=== PATIENT | female | born 1965 | race Caucasian/White ===

== ENCOUNTER 2016-11-29 09:59 | Emergency (ER) | payer OTHER, MEDICAID ==
[2016-11-29] MEDS ORDERED: Labetalol 100 MG/20 ML MDV IVPUSH ONE (11:00)
[2016-11-29] MEDS ORDERED: Sodium Chloride 0.9% 10 ML Syringe FLUSH PRN (11:00)
--- NOTE | 2016-11-29 11:17 | EDM.PDOC ---
ED HPI GENERAL MEDICAL PROBLEM - General Chief Complaint: ENT Problem Stated Complaint: NOSE BLEED, EARS RINGING, Time Seen by Provider: 11/29/16 10:22 Source of Information: Reports: Patient, RN Notes Reviewed - History of Present Illness INITIAL COMMENTS - FREE TEXT/NARRATIVE: 51-year-old lady comes in with multiple symptoms. SHe has not been feeling well for the past week or 10 days with upper respiratory symptoms of nasal congestion cough, low energy. She is under a lot of stress in terms of work and also a bad social situation involving custody of a granddaughter. She had been on medication for hypertension but stopped taking her medication about a year ago. She really does not know what her blood pressure has been running. She did have a nosebleed about a month ago that did stop on its own. she had recurrent severe nosebleed left nares this morning at work a couple of hours ago. she wanted to just go home and rest but her boss, family and friend all insisted she come to the ED. Nosebleed did stop at some point prior to arrival. 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: Other (see below) Other Treatments HOSIERY LOOPER: murtaza asa x 2 tabs - Related Data Allergies Allergy/AdvReac Type Severity Reaction Status Date / Time Penicillins Allergy Swelling Verified 11/29/16 10:18 Home Meds: Home Meds Lisinopril 10 mg PO DAILY #30 tablet 11/29/16 [Rx] Past Medical History Cardiovascular History: Reports: Hypertension Respiratory History: Reports: Asthma Genitourinary History: Reports: Other (See Below) Other Genitourinary History: bladder repair - Past Surgical History GI Surgical History: Reports: Appendectomy, Other (See Below) Other GI Surgeries/Procedures: colon repair Female Surgical History: Reports: Hysterectomy Social & Family History - Tobacco Use Smoking Status *Q: Current Every Day Smoker Years of Tobacco use: 40 Packs/Tins Daily: 1.5 - Caffeine Use Caffeine Use: Reports: Coffee - Recreational Drug Use Recreational Drug Use: Yes Recreational Drug Type: Reports: Marijuana/Hashish Recreational Drug Use Frequency: Weekly ED ROS ENT - Review of Systems Review Of Systems: See Below Constitutional: Denies: Fever, Chills HEENT: Reports: Rhinitis, Sinus Problem, Other (Nosebleed left nares). Denies: Throat Pain Respiratory: Denies: Shortness of Breath Cardiovascular: Denies: Chest Pain Endocrine: Reports: Fatigue GI/Abdominal: Denies: Abdominal Pain, Nausea, Vomiting Musculoskeletal: Reports: Other (Generalized achiness) Skin: Reports: No Symptoms Neurological: Reports: No Symptoms, Headache (Mild frontal). Denies: Trouble Speaking Psychiatric: Reports: Anxiety, Other (Severe stress) ED EXAM, ENT - Physical Exam Exam: See Below General Appearance: Alert, Anxious, Mild Distress Eye Exam: Bilateral Eye: PERRL Nose: Other (Area of prior bleeding visible left septum). No: Active Bleeding Mouth/Throat: Normal Inspection Head: Atraumatic Neck: Supple, Full Range of Motion Respiratory/Chest: No Respiratory Distress, Lungs Clear, Normal Breath Sounds Cardiovascular: Tachycardia GI/Abdominal: Soft, Non-Tender Extremities: Normal Inspection, Normal Range of Motion. No: Pedal Edema, Leg Pain Neurological: Alert, Oriented, No Motor/Sensory Deficits Skin: Warm, Dry, Normal Color Course - Vital Signs Last Recorded V/S: Last Vital Signs Temp 98.0 F 11/29/16 10:14 Pulse 94 11/29/16 12:33 Resp 20 11/29/16 10:14 BP 124/76 11/29/16 12:33 Pulse Ox 96 11/29/16 12:32 - Orders/Labs/Meds Orders: Active Orders 24 hr Category Date Time Status Peripheral IV Care [RC] . DIRECTED Care 11/29/16 11:00 Active Sodium Chloride 0.9% [Saline Flush] Med 11/29/16 11:00 Active 10 ml FLUSH ASDIRECTED PRN Peripheral IV Insertion Adult [OM.PC] Stat Oth 11/29/16 11:00 Ordered Medication Orders Sodium Chloride (Saline Flush) 10 ml FLUSH ASDIRECTED PRN PRN Reason: Keep Vein Open Last Admin: 11/29/16 11:36 Dose: 10 ml Labs: Laboratory Tests 11/29/16 11/29/16 Range/Units 11:15 11:15 WBC 16.15 H (3.98-10.04) K/mm3 RBC 5.19 (3.98-5.22) M/mm3 Hgb 15.1 (11.2-15.7) gm/L Hct 45.1 H (34.1-44.9) % MCV 86.9 (79.4-94.8) fl MCH 29.1 (25.6-32.2) pg MCHC 33.5 (32.2-35.5) g/dl RDW Std Deviation 43.9 (36.4-46.3) fL Plt Count 333 (182-369) K/mm3 MPV 9.8 (9.4-12.3) fl Neut % (Auto) 74.9 H (34.0-71.1) % Lymph % (Auto) 18.7 L (19.3-51.7) % [place] % (Auto) 4.6 L (4.7-12.5) % Eos % (Auto) 1.4 (0.7-5.8) Baso % (Auto) 0.2 (0.1-1.2) % Neut # (Auto) 12.10 H (1.56-6.13) K/mm3 Lymph # (Auto) 3.02 (1.18-3.74) K/mm3 [place] # (Auto) 0.74 H (0.24-0.36) K/mm3 Eos # (Auto) 0.22 (0.04-0.36) K/mm3 Baso # (Auto) 0.03 (0.01-0.08) K/mm3 Sodium 137 (136-145) mEq/L Potassium 4.0 (3.5-5.1) mEq/L Chloride 102 (98-107) mEq/L Carbon Dioxide 24 (21-32) mEq/L Anion Gap 15.0 (5-15) BUN 13 (7-18) mg/dL Creatinine 0.8 (0.55-1.02) mg/dL Est Cr Clr Drug Dosing 79.99 mL/min Estimated GFR (MDRD) > 60 (>60) mL/min BUN/Creatinine Ratio 16.3 (14-18) Glucose 122 H (74-106) mg/dL Calcium 9.3 (8.5-10.1) mg/dL Total Bilirubin 0.3 (0.2-1.0) mg/dL AST 21 (15-37) U/L ALT 38 (14-59) U/L Alkaline Phosphatase 69 (46-116) U/L Total Protein 7.6 (6.4-8.2) g/dl Albumin 3.6 (3.4-5.0) g/dl Globulin 4.0 gm/dL Albumin/Globulin Ratio 0.9 L (1-2) Meds: Medications Generic Name Dose Route Start Last Admin Trade Name Freq PRN Reason Stop Dose Admin Sodium Chloride 10 ml 11/29/16 11:00 11/29/16 11:36 Saline Flush FLUSH 10 ml ASDIRECTED PRN Administration Keep Vein Open Discontinued Medications Generic Name Dose Route Start Last Admin Trade Name Freq PRN Reason Stop Dose Admin Cocaine HCl 4 ml 11/29/16 11:01 11/29/16 11:52 Cocaine Hcl TOP 11/29/16 11:02 4 ml ONETIME ONE Administration Labetalol HCl 20 mg 11/29/16 11:00 11/29/16 11:25 Normodyne IVPUSH 11/29/16 11:01 20 mg ONETIME ONE Administration Protocol - Re-Assessments/Exams Free Text/Narrative Re-Assessment/Exam: 11/29/16 11:16 As noted bleeding stopped at time of my exam. I can see where that was coming from. Her pressure quite elevated, 145/112. We'll check some lab work, plan to give IV labetalol to better stabilize her blood pressure, will use some cocaine solution and then plan to cauterize area of prior bleeding. 11/29/16 12:52. Blood pressure came down well after labetalol 20 mg IV. I did cauterize the area of prior bleeding left septum with no further bleeding. Tartar on lisinopril 10 mg daily for her hypertension. Discharge instructions as documented Departure - Departure Time of Disposition: 12:52 Disposition: Home, Self-Care 01 Condition: Fair Clinical Impression: Epistaxis Hypertension Qualifiers: Hypertension type: essential hypertension Qualified Code(s): I10 - Essential ( primary) hypertension - Discharge Information Prescriptions: Lisinopril 10 mg PO DAILY #30 tablet Instructions: Nosebleed, [id number], Hypertension Referrals: PCP,None [Primary Care Provider] - Forms: ED Department Discharge, ED Return to Work/School Form Additional Instructions: Rest, this will take 3-4 days to heal completely, pressure to the nose if you do have any further bleeding, lisinopril 10 mg daily, you should begin that today, follow-up with Dr. Lu at our [facility] medical clinic in about 2-3 weeks for recheck, call [phone] for appointment, try get sure blood pressure checked 2 or 3 times weekly in the meantime and bring that record in for Dr. Lu at the time of your appointment. Return to ED as needed. - My Orders Last 24 Hours: My Active Orders 11/29/16 11:00 Peripheral IV Care [RC] . DIRECTED Sodium Chloride 0.9% [Saline Flush] 10 ml FLUSH ASDIRECTED PRN Peripheral IV Insertion Adult [OM.PC] Stat - Assessment/Plan Last 24 Hours: My Active Orders 11/29/16 11:00 Peripheral IV Care [RC] . DIRECTED Sodium Chloride 0.9% [Saline Flush] 10 ml FLUSH ASDIRECTED PRN Peripheral IV Insertion Adult [OM.PC] Stat
== END 2016-11-29 12:55 | disposition home or self-care (01) ==
LOC: JD.ED 09:59
DX: R04.0 Epistaxis (principal); I10 Essential (primary) hypertension; F17.210 Nicotine dependence, cigarettes, uncomplicated; J45.909 Unspecified asthma, uncomplicated; Z79.899 Other long term (current) drug therapy; Z88.0 Allergy status to penicillin; Z90.49 Acquired absence of other specified parts of digestive tract; Z98.890 Other specified postprocedural states
CPT/HCPCS: 30901; 36415; 80053; 85025; 96374; 99284; J7050

== ENCOUNTER 2016-11-30 10:45 | Emergency (ER) | payer OTHER, MEDICAID ==
[2016-11-30] MEDS ORDERED: diphenhydrAMINE 50 MG/ML SDV IVPUSH ONE (11:36)
[2016-11-30] MEDS ORDERED: Haloperidol Lactate 5 MG/ML SDV IVPUSH ONE (11:36)
--- NOTE | 2016-11-30 11:41 | EDM.PDOC ---
ED HPI GENERAL MEDICAL PROBLEM - General Chief Complaint: Headache Stated Complaint: HEADACHE/NAUSEA/LETHARGY/SLURRED SPEECH Time Seen by Provider: 11/30/16 11:24 Source of Information: Reports: Patient History Limitations: Reports: No Limitations - History of Present Illness INITIAL COMMENTS - FREE TEXT/NARRATIVE: Patient is a 51-year-old female who suffers from depression and anxiety presents ED complaining of a tension type headache encompassing the frontal aspect of her head bitemporally. RHODES came on yesterday. Mild to moderate intensity. Photophobia noted. Minimal nausea present. States she's been under a lot more stress recently at work and with family situation. States her granddaughter is in [place] with her father and she is fighting to get her back to [place]. Her and her daughter do not have a great relationship. 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 In addition yesterday she was diagnosed with high blood pressure and started on metoprolol. She has not taken it today. States she will be taking it at 5:00 pm as instructed. Has had been intermittent dizziness. No weakness, chest pain, shortness of breath, abdominal pain, focal neurological deficits, or any additional complaints. Headache Pain Score (Numeric/FACES): 10 - Related Data Allergies Allergy/AdvReac Type Severity Reaction Status Date / Time Penicillins Allergy Swelling Verified 11/30/16 11:02 Home Meds: Home Meds Lisinopril 10 mg PO DAILY #30 tablet 11/29/16 [Rx] Past Medical History Cardiovascular History: Reports: Hypertension Respiratory History: Reports: Asthma Genitourinary History: Reports: Other (See Below) Other Genitourinary History: bladder repair - Past Surgical History GI Surgical History: Reports: Appendectomy, Other (See Below) Other GI Surgeries/Procedures: colon repair Female Surgical History: Reports: Hysterectomy Social & Family History - Tobacco Use Smoking Status *Q: Current Every Day Smoker Years of Tobacco use: 40 Packs/Tins Daily: 1.5 - Caffeine Use Caffeine Use: Reports: Coffee - Recreational Drug Use Recreational Drug Use: Yes Recreational Drug Type: Reports: Marijuana/Hashish Recreational Drug Use Frequency: Socially ED ROS GENERAL - Review of Systems Review Of Systems: ROS reveals no pertinent complaints other than HPI. Constitutional: Denies: Fever, Chills - Physical Exam Exam: See Below Exam Limited By: No Limitations General Appearance: Alert, WD/WN, No Apparent Distress Eye Exam: Bilateral Eye: EOMI, Nystagmus (None found), PERRL Ears: Hearing Grossly Normal Nose: Normal Inspection Throat/Mouth: Normal Inspection, Normal Oropharynx, Normal Voice, No Airway Compromise Head Exam: Atraumatic, Normocephalic Neck: Normal Inspection, Supple, Non-Tender, Full Range of Motion Respiratory/Chest: No Respiratory Distress, Lungs Clear, Normal Breath Sounds Cardiovascular: Normal Peripheral Pulses, Regular Rate, Rhythm, No Murmur GI/Abdominal: Normal Bowel Sounds, Soft, Non-Tender Neuro Exam (Abbreviated): Alert, Oriented, CN II-XII Intact, Normal Cognition, No Motor/Sensory Deficits, Other (Cerebellar function intact. No weakness discrepancy is to the upper and lower extremities. No slurred speech, pronator drift, tongue midline) Extremities: Normal Inspection, Non-Tender Psychiatric: Anxious, Depressed Mood, Tearful Skin Exam: Warm, Dry, Intact, Normal Color Course - Vital Signs Last Recorded V/S: Last Vital Signs Temp 98 F 11/30/16 10:59 Pulse 88 11/30/16 10:59 Resp 16 11/30/16 10:59 BP 199/141 H 11/30/16 10:59 Pulse Ox 94 L 11/30/16 10:59 - Orders/Labs/Meds Meds: Medications Discontinued Medications Generic Name Dose Route Start Last Admin Trade Name Freq PRN Reason Stop Dose Admin Diphenhydramine HCl 50 mg 11/30/16 11:36 11/30/16 11:44 Benadryl IVPUSH 11/30/16 11:37 50 mg ONETIME ONE Administration Haloperidol Lactate 5 mg 11/30/16 11:36 11/30/16 11:44 Haldol IVPUSH 11/30/16 11:37 5 mg ONETIME ONE Administration - Re-Assessments/Exams Free Text/Narrative Re-Assessment/Exam: Will attempt to abort her headache with the haldol 5 mg IV and Benadryl 50 mg IVP. She has taken ibuprofen 800 mg approximately an hour prior to arrival. Oral mucosa was moist. No IV fluids are required. 11/30/16 12:29 Reassessment, patient sitting upright in bed and states her headache has completely resolve. She is feeling much better. Blood pressure 120 systolic. She is ready to be discharged home. Departure - Departure Time of Disposition: 12:30 Disposition: Home, Self-Care 01 Condition: Good Clinical Impression: Anxiety and depression, Tension-type headache - Discharge Information Instructions: General Headache Without Cause, [id number] Referrals: PCP,None [Primary Care Provider] - Forms: ED Department Discharge Additional Instructions: Suggest going home and finding a dark room to go to sleep with no distractions. Continue utilizing ibuprofen 600 mg every 6 hours and Tylenol 650 mg every 6 hours and alternate fashion for headache. Push the fluids. Ensure adequate rest. Eat a balanced diet. Stop smoking. Call [facility] tomorrow morning to make an appointment to be seen in the next 3-5 days for reevaluation. Continue taking your blood pressure medication as prescribed. Return to the ED for any new or worsening symptoms.
== END 2016-11-30 12:35 | disposition home or self-care (01) ==
LOC: JD.ED 10:45
DX: G44.209 Tension-type headache, unspecified, not intractable (principal); F32.9 Major depressive disorder, single episode, unspecified; F41.9 Anxiety disorder, unspecified; F17.210 Nicotine dependence, cigarettes, uncomplicated; Z90.49 Acquired absence of other specified parts of digestive tract; J45.909 Unspecified asthma, uncomplicated; I10 Essential (primary) hypertension; Z88.0 Allergy status to penicillin; Z79.899 Other long term (current) drug therapy
CPT/HCPCS: 96374; 96375; 99284; J1200; J1630

== ENCOUNTER 2024-11-13 18:43 | Emergency (ER) | payer BC, MEDICAID ==
[2024-11-13 19:38] LABS: BASOPHILS ABSOLUTE AUTO 0.1 K/mm3 (0.0-0.2); BASOPHILS PERCENT AUTO 0.4 % (0.0-1.0); EOSINOPHILS ABSOLUTE AUTO 0.2 K/mm3 (0.0-0.4); EOSINOPHILS PERCENT AUTO 1.4 % (0.0-6.0); IMMATURE GRAN ABSOLUTE AUTO 0.07 K/mm3 (0.00-0.05); IMMATURE GRAN PERCENT AUTO 0.5 % (0.0-0.4); LYMPHOCYTES ABSOLUTE AUTO 2.0 K/mm3 (1.0-4.8); LYMPHOCYTES PERCENT AUTO 14.3 % (24.0-44.0); MEAN PLATELET VOLUME 9.9 fl (9.4-12.3); MONOCYTES ABSOLUTE AUTO 0.7 K/mm3 (0.0-0.8); MONOCYTES PERCENT AUTO 5.2 % (0.0-8.0); NEUTROPHILS ABSOLUTE AUTO 10.9 K/mm3 (1.8-7.7); NEUTROPHILS PERCENT AUTO 78.2 % (41.0-71.0); NRBC ABSOLUTE 0.00 (0.00-0.02); NRBC PERCENT 0.0 % (0.0-0.2); PLATELET COUNT,PLT 472 K/mm3 (150-400); RED BLOOD CELL COUNT 5.62 M/mm3 (4.10-5.30); WHITE BLOOD CELL COUNT,WBC 13.91 K/mm3 (3.9-11.3)
[2024-11-13 19:56] LABS: A/G RATIO 0.7 (1-2); ALANINE AMINOTRANSFERASE,ALT 36 U/L (14-59); ASPARTATE AMNIOTRANSFERASE,AST 20 U/L (15-37); BILIRUBIN TOTAL 0.2 mg/dL (0.2-1.0); BLOOD UREA NITROGEN,BUN 17 mg/dL (7-18); CARBON DIOXIDE,CO2 28 mEq/L (21-32); CHLORIDE,CL 101 mEq/L (98-107); CREATININE 1.0 mg/dL (0.55-1.02); ESTIMATED GFR 65 mL/min (>60); GLUCOSE RANDOM 319 mg/dL (70-99); POTASSIUM,K 4.1 mEq/L (3.5-5.1); PROTEIN TOTAL,TP 7.8 g/dl (6.4-8.2); SODIUM,NA 139 mEq/L (136-145); TROPONIN I HIGH SENSITIVITY 24 pg/mL (<=51)
[2024-11-13] MEDS: Ketorolac 30 MG/ML SDV IVPUSH ONE (20:45)
[2024-11-13] MEDS: methylPREDNISolone Sodium Succinate 125 MG/2 ML SDV IVPUSH ONE (20:51)
[2024-11-13] MEDS: Magnesium Sulfat/D5W 1GM/100ML 1 GM in Premix Bag 1 BAG IV ONE (21:29)
[2024-11-13] MEDS ORDERED: Sodium Chloride 0.9% 10 ML Syringe FLUSH PRN (21:44)
[2024-11-13 21:49] LABS: BUPRENORPHINE SCREEN,URINE NEGATIVE (CUTOFF=10); METHADONE SCREEN, URINE NEGATIVE (CUTOFF=200); METHAMPHETAMINES SCREEN, URINE NEGATIVE (CUTOFF=500); OXYCODONE SCREEN,URINE NEGATIVE (CUT0FF=100); THC SCREEN,URINE 20 NG/ML PRESUMPTIVE POSITIVE (CUTOFF=50)
[2024-11-13 21:53] LABS: AMPHETAMINES SCREEN, URINE NEGATIVE (CUTOFF=500)
[2024-11-13] MEDS: Iopamidol 755 Mg/ML 100 ML Bottle IVPUSH ONE (22:16)
[2024-11-13] MEDS: Sodium Chloride 0.9% 10 ML Syringe FLUSH PRN (22:16)
[2024-11-13] MEDS ORDERED: Naloxone 0.4 MG/ML SDV IVPUSH PRN (22:45)
[2024-11-14 01:08] LABS: BASE EXCESS ARTERIAL -1.2 (-2-2.0); BICARBONATE,ARTERIAL 22.7 meq/L (22.0-26.0); O2 SATURATION ARTERIAL 97.4 % (96.0-97.0); PCO2 ARTERIAL 35.0 mmHg (35.0-45.0); PO2 ARTERIAL 79.0 mmHg (80.0-100.0)
[2024-11-14] MEDS ORDERED: 50% Dextrose in Water 50 ML Syringe IVPUSH PRN (01:24)
[2024-11-14] MEDS: Insulin Lispro 100 Unit/ML 3 ML KwikPen SUBCUT ONE (01:44)
[2024-11-14] MEDS: Levofloxacin/Dextrose 5%-Water 750 MG in Premix Bag 1 BAG IV ONE (01:49)
== END 2024-11-14 02:47 ==
LOC: JD.ED 18:43
DX: J98.4 Other disorders of lung (principal); I10 Essential (primary) hypertension; J18.9 Pneumonia, unspecified organism; J45.909 Unspecified asthma, uncomplicated; E83.42 Hypomagnesemia; E11.9 Type 2 diabetes mellitus without complications; Z90.49 Acquired absence of other specified parts of digestive tract; Z88.0 Allergy status to penicillin; Z79.899 Other long term (current) drug therapy; Z79.4 Long term (current) use of insulin; Z72.0 Tobacco use
CPT/HCPCS: 36415; 36600; 71045; 71045-26; 71275; 71275-26; 80053; 80306; 82803; 82947; 83735; 83880; 84484; 85025; 87428-QW; 93005; 94640; 96365; 96367; 96375; 99285-25; A9270-GY; J1885; J1956; J2270; J2919; J3475; Q9967